=== PATIENT | female | born 1990 | race Caucasian/White ===

== ENCOUNTER 2017-09-23 22:41 | Emergency (ER) | payer BC, SELFPAY ==
--- OUTSIDE RECORDS SUMMARY | 2017-09-23 22:43 | XMS REPORT ---
:1990 Author Organization [facility] Address [address] [place] [address] Dr. Bourgeois [address] [place] [id number] Care Team Providers Name Role Phone UNKNOWN, REFFERING Primary Care Provider Unavailable JUSTIN HASTINGS Unavailable Unavailable Problems This patient has no known problems. Allergies, Adverse Reactions, Alerts This patient has no known allergies or adverse reactions. Medications This patient has no known medications. Encounters Start End Encounter Admission Attending Care Care Encounter Date/Time Date/Time Type Type Clinicians Facility Department ID 2017-07-28 2017-07-29 Outpatient [facility] [id number] 00:00:00 00:00:00 Results Test Description Test Time Test Comments Text Results Atomic Results Result Comments BHCG, Serum, Qualitative 2016-09-17 07:17:00 Test Item Value Reference Range Comments Preg Qual [Se] (test code=BSHCG) Negative Negative
[2017-09-24 01:14] LABS: Urine Blood NEGATIVE (NEG); Urine Glucose NEGATIVE (NEG); Urine Protein NEGATIVE (NEG); Urine Specific Gravity 1.015 (1.005-1.030)
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
[2017-09-24 07:31] VITALS: O2SAT 98
[2017-09-24 07:32] VITALS: BP 114/69
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
== END 2017-09-24 06:24 | disposition home or self-care (01) ==
LOC: ER 22:41
DX: S00.83XA Contusion of other part of head, initial encounter (principal); W22.8XXA Striking against or struck by other objects, initial encounter; Y93.89 Activity, other specified; Y92.89 Other specified places as the place of occurrence of the external cause; Z88.5 Allergy status to narcotic agent
CPT/HCPCS: 70450; 72125; 81003; 81025; 99285